=== PATIENT | male | born 1990 | race Caucasian/White ===

== ENCOUNTER 2019-04-07 18:00 | Emergency (ER) | payer OTHER ==
[~2019-04-07] VITALS: Wt 88.9 kg
[2019-04-07] MEDS ORDERED: KEPPRA500 MG PO (18:41)
== END 2019-04-07 18:49 | disposition home or self-care (01) ==
LOC: ED 18:00
DX: F11.90 Opioid use, unspecified, uncomplicated (principal); R61 Generalized hyperhidrosis; R09.89 Other specified symptoms and signs involving the circulatory and respiratory systems; R11.0 Nausea